=== PATIENT | male | born 1940 | race Caucasian/White ===

== ENCOUNTER 2018-11-12 07:40 | Day surgery (SDC) | payer OTHER ==
[2018-11-11 10:45] VITALS: BMI 32.5
[2018-11-12] MEDS ORDERED: LIDOCAINE HCL/PF 2% SDV 5ML VIAL ONE (07:56)
[2018-11-12] MEDS ORDERED: PROPOFOL 20 ML ONE ×2 (07:56)
[2018-11-12 09:24] VITALS: BP 92/54; PULSE 74; TEMP 98
--- NOTE | 2018-11-14 11:51 | PATH ---
Surgical Pathology Report Patient Name: EFREN GRESHAM [facility]. Rec. #: [id number] /Age/Gender: 1940 (Age: 78) / M Account: [id number] Location: [facility] Taken: 11/12/2018 Received: 11/12/2018 Reported: 11/14/2018 Physicians: Kalyan Meadows M.D. Specimen(s) Received INFLAMED ILEOCECAL VALVE Clinical History History of polyps Postoperative diagnosis: Diverticulosis, prominent ileocecal valve Final Diagnosis INFLAMED ILEOCECAL VALVE, BIOPSY: COLONIC MUCOSA WITH FOCAL MILD ACUTE INFLAMMATION AND REACTIVE LYMPHOID AGGREGATE IN THE LAMINA PROPRIA. NO ARCHITECTURAL FEATURES OF CHRONICITY IDENTIFIED. Electronically Signed Rochelle Saleem M.D. Gross Description Received in formalin, labeled "biopsy inflamed ileocecal valve" is a sargent, irregular portion of soft tissue measuring 0.3 cm. in greatest dimension. The specimen is submitted in toto in one cassette. 11/13/201811/13/2018
== END 2018-11-12 09:25 | disposition home or self-care (01) ==
LOC: FASU-ENDO 07:40
PROVIDERS: ATTEND Internal Medicine Gastroenterology
PROC: 0DBC8ZX Excision of Ileocecal Valve, Via Natural or Artificial Opening Endoscopic, Diagnostic (ICD-10-PCS; principal; 2018-11-12 08:26)
DX: Z86.010 Personal history of colon polyps (principal); K57.30 Diverticulosis of large intestine without perforation or abscess without bleeding; K63.89 Other specified diseases of intestine
CPT/HCPCS: 82962; 88305-TC